=== PATIENT | male | born 1985 | race Two or more races ===

== ENCOUNTER 2023-11-08 20:45 | Observation (INO) | payer MEDICARE, SELFPAY ==
[2023-11-08 20:47] VITALS: BP 134/80; PULSE 102; TEMP 36.8; O2SAT 100; BMI 34.1
--- NOTE | 2023-11-08 20:56 | ED.LOWEXI1 ---
HPI HPI - Extremity Injury (Lower) General Chief Complaint: Extremity Injury, Lower Stated Complaint: knee pain fall Time Seen by Provider: 11/08/23 20:51 Source: patient and family Mode of arrival: ambulance Limitations: physical limitation History of Present Illness HPI Narrative: history of muscular dystrophy. Attending PT today. Therapist moved away and the patient was not aware and when he reached out to grab the therapist he fell directly onto his right knee. Injury 8 hours ago. Now has increased swelling of the knee and pain. States he also hit his head but this was mild . No headache.Does also have right hip pain. States with his therapy he was getting close to being able to ambulate without a walker Related Data Home Medications ?Medication ?Instructions ?Recorded ?Confirmed omeprazole 40 mg capsule,delayed 40 mg PO DAILY 11/08/23 11/09/23 release polyethylene glycol 3350 17 17 g PO .once daily 11/08/23 11/08/23 gram/dose oral powder Previous Rx's ?Medication ?Instructions ?Recorded hydrocodone 5 mg-acetaminophen 325 1 - 2 tab PO Q6H PRN Moderate to 11/09/23 mg tablet severe pain #20 tabs Allergies Allergy/AdvReac Type Severity Reaction Status Date / Time cashews Allergy Intermediate Uncoded 11/09/23 01:41 food dyes Allergy Intermediate Uncoded 11/09/23 01:41 peanuts Allergy Intermediate Uncoded 11/09/23 01:41 sunflower seeeds Allergy Intermediate Uncoded 11/09/23 01:41 eggs Allergy Mild Uncoded 11/09/23 01:41 shellfish Allergy Mild Uncoded 11/09/23 01:41 almonds AdvReac Severe Uncoded 11/09/23 01:41 Opioid HPI Opioid Management Most Recent Pain and Opioid Data: Last Pain Scale 7 11/09/23 13:00 Last Pain Intensity 0 11/09/23 09:27 Last Pain Assessment 11/09/23 09:27 Last Pain Assessment 11/09/23 13:00 Last MAR Pain Assessment 11/09/23 10:37 Last ORT Total Score 1 11/09/23 01:20 Last ORT Risk Category Low Risk 11/09/23 01:20 Review of Systems ROS Status of ROS 10 or more systems reviewed and unremarkable except as noted in history and below PFSH PFSH Medical History (Updated 11/09/23 @ 14:37 by Bryan Villa MD) Frequent falls ?R29.6 - Repeated falls (ICD-10) GERD (gastroesophageal reflux disease) ?K21.9 - Gastro-esophageal reflux disease without esophagitis (ICD-10) Muscular dystrophy ?G71.00 - Muscular dystrophy, unspecified (ICD-10) Abnormal endoscopy of upper gastrointestinal tract ?R93.3 - Abnormal findings on diagnostic imaging of other parts of digestive tract (ICD-10) Pneumothorax ?J93.9 - Pneumothorax, unspecified (ICD-10) Family History (Updated 11/09/23 @ 01:30 by Darrell Dye) Grandmother Family history of cancer Family history of diabetes mellitus Mother Family history of cancer Family history of diabetes mellitus Grandfather Family history of cancer Family history of diabetes mellitus Sister Family history of diabetes mellitus Other Family history not known due to adoption Social History (Updated 11/09/23 @ 01:36 by Darrell Dye) Within the past year, how often did you have a drink containing alcohol: never Within the past year, how often did you have six or more drinks on one occasion: never Score interpretation: A score less than 4 is consistent with normal alcohol consumption. Smoking status: Former smoker Second hand tobacco smoke exposure: No Non-prescribed substance use: former substance user Previous occupational history: factory, Known occupational exposures/hazards: No Highest level of school completed/degree received: Bachelor's degree Do you want help with school or training: No In a typical week, how many times do you talk on the telephone with family, friends, or neighbors: 3 or more times per week How often do you get together with friends or relatives: 3 or more times per week How often do you attend holiness or evangelical services: never Do you belong to any clubs or organizations such as holiness groups unions, fraternal or athletic groups, or school groups: no Little interest or pleasure in doing things: not at all Feeling down, depressed, or hopeless: not at all Feel stressed/tense/nervous/anxious/difficulty sleeping: only a little Life stressors: other Life stressor details: disease process Due to disability, difficulty making decisions: No Do you think of yourself as: straight/heterosexual Gender Identity: male Exam Constitutional Vital Signs, click to edit/add: Last Vital Signs Temp 98.2 F 11/08/23 20:47 Pulse 102 H 11/08/23 20:47 Resp 18 11/08/23 20:47 BP 134/80 11/08/23 20:47 Pulse Ox 100 11/08/23 20:47 O2 Del Method Room Air 11/08/23 20:47 Common normals: oriented x3, alert and well nourished (small frame) Eye Common normals: EOMs intact bilaterally and conjunctivae normal Respiratory Common normals: normal respiratory effort, no retractions and no use of accessory muscles Cardio Common normals: regular rate, regular rhythm, S1 normal heart sound and S2 normal heart sound Extremity Other: mod-severe effusion right knee. mod tenderness. mild tenderness right hip Neuro Common normals: CN's II-XII intact bilaterally and moves all extremities Sensorium/orientation: awake and alert Psych Appearance: grossly normal Course Vital Signs Vital signs: Vital Signs Temperature 98.2 F 11/08/23 20:47 Pulse Rate 102 H 11/08/23 20:47 Respiratory Rate 18 11/08/23 20:47 Blood Pressure 134/80 11/08/23 20:47 Pulse Oximetry 100 11/08/23 20:47 Oxygen Delivery Method Room Air 11/08/23 20:47 Temperature 98.2 F 11/08/23 20:47 Pulse Rate 102 H 11/08/23 20:47 Respiratory Rate 18 11/08/23 20:47 Blood Pressure 134/80 11/08/23 20:47 Pulse Oximetry 100 11/08/23 20:47 Oxygen Delivery Method Room Air 11/08/23 20:47 MDM - Extremity Injury (Lower) MDM Narrative Medical decision making narrative: patient presents after fall directly onto his right knee. significant swelling of the knee. CT without definite fracture but radiologist still concerned there may be a fracture due to lipohemarthrosis and recommends MRI. Patient placed in a knee immobilizer and referred to orthopedics. Patient not able to bear weight and not able to use walker or crutches. Discussed with hospitalist and will plan obs admission for pain control. Orthopedics Dr Arenas not able to admit patient. He was agreeable to hospitalist admission for pain control . He can see the patient for definite on Thursday Imaging Data CT scan - chest: Radiologist's impression: ITS Impressions Hip/Pelvis X-Ray 11/08/23 21:00 IMPRESSION: 1. No acute fracture or dislocation of the pelvis or right hip is seen. If there is concern for an occult injury, cross-sectional imaging is recommended. 2. No acute fracture or dislocation of the right knee is seen; however, there is a large knee lipohemarthrosis, concerning for an occult injury. Consider further evaluation with CT. Electronically authenticated by: Jenise QUINTERO Date: 11/08/2023 21:51 Knee X-Ray 11/08/23 21:00 IMPRESSION: 1. No acute fracture or dislocation of the pelvis or right hip is seen. If there is concern for an occult injury, cross-sectional imaging is recommended. 2. No acute fracture or dislocation of the right knee is seen; however, there is a large knee lipohemarthrosis, concerning for an occult injury. Consider further evaluation with CT. Electronically authenticated by: Jenise QUINTERO Date: 11/08/2023 21:[address] 11/08/23 22:15 IMPRESSION: I suspect this patient has an occult intra-articular fracture of the right knee that is so nondisplaced that it is not apparent on this CT scan. I recommend obtaining an MRI scan of the right knee which is a more sensitive and specific imaging modality for the detection of occult fractures. I recommend this patient not to bear weight on this right knee until such an MRI could be obtained. Electronically authenticated by: ALONDRA SAN Date: 11/08/2023 23:44 Discharge Plan Discharge Chief Complaint: Extremity Injury, Lower Clinical Impression: Contusion of knee, right, Hemarthrosis of right knee Patient Disposition: Admitted as Observation Time of Disposition Decision: 00:39 Condition: Fair Discharge Date/Time: 11/09/23 01:11
--- NOTE | 2023-11-08 21:00 | XR_ITS ---
The [address] [address] Patient Name: MARIO LEDBETTER MRN: [id number] date: 1985 Sex: M Assigned Patient Location: ER Current Patient Location: ER Accession/Order Number: [id number] Exam Date: 11/08/2023 21:15 Report Date: 11/08/2023 21:51 At the request of: MANDY VEAG Procedure: XR hip RT 2V w/ pelvis EXAM: XR knee RT 3V, XR hip RT 2V w/ pelvis HISTORY: injury COMPARISON: None. TECHNIQUE: One view of the pelvis, 2 views of the right hip, and 3 views of the right knee were obtained. FINDINGS: Pelvis and right hip: No acute fracture or dislocation is seen. The femoral heads are well-seated in the acetabula. The sacroiliac joints, hip joints, and pubic symphysis are preserved. Right knee: No acute fracture or dislocation is seen. The joint spaces are preserved. There is a large right knee lipohemarthrosis. XR/XR hip RT 2V w/ pelvis IMPRESSION: 1. No acute fracture or dislocation of the pelvis or right hip is seen. If there is concern for an occult injury, cross-sectional imaging is recommended. 2. No acute fracture or dislocation of the right knee is seen; however, there is a large knee lipohemarthrosis, concerning for an occult injury. Consider further evaluation with CT. Electronically authenticated by: Jenise QUINTERO Date: 11/08/2023 21:51
--- NOTE | 2023-11-08 21:00 | XR_ITS ---
The [address] [address] Patient Name: MARIO LEDBETTER MRN: [id number] date: 1985 Sex: M Assigned Patient Location: ER Current Patient Location: ER Accession/Order Number: [id number] Exam Date: 11/08/2023 21:15 Report Date: 11/08/2023 21:51 At the request of: MANDY VEGA Procedure: XR knee RT 3V EXAM: XR knee RT 3V, XR hip RT 2V w/ pelvis HISTORY: injury COMPARISON: None. TECHNIQUE: One view of the pelvis, 2 views of the right hip, and 3 views of the right knee were obtained. FINDINGS: Pelvis and right hip: No acute fracture or dislocation is seen. The femoral heads are well-seated in the acetabula. The sacroiliac joints, hip joints, and pubic symphysis are preserved. Right knee: No acute fracture or dislocation is seen. The joint spaces are preserved. There is a large right knee lipohemarthrosis. XR/XR knee RT 3V IMPRESSION: 1. No acute fracture or dislocation of the pelvis or right hip is seen. If there is concern for an occult injury, cross-sectional imaging is recommended. 2. No acute fracture or dislocation of the right knee is seen; however, there is a large knee lipohemarthrosis, concerning for an occult injury. Consider further evaluation with CT. Electronically authenticated by: Jenise QUINTERO Date: 11/08/2023 21:51
--- NOTE | 2023-11-08 22:15 | CT_ITS ---
The [address] [address] Patient Name: MARIO LEDBETTER MRN: [id number] date: 1985 Sex: M Assigned Patient Location: ER Current Patient Location: ER Accession/Order Number: [id number] Exam Date: 11/08/2023 22:48 Report Date: 11/08/2023 23:44 At the request of: MANDY VEGA Procedure: CT knee RT wo con EXAM: CT knee RT wo con HISTORY: The patient is a 38-year-old male, injury COMPARISON: Radiographs of the right knee from 9:14 PM. TECHNIQUE: CT images were obtained through the right knee without intravenous contrast and reformatted in 2 dimensions. Dose reduction techniques were achieved by using automated exposure control and/or adjustment of mA and/or kV according to patient size and/or use of iterative reconstruction technique. FINDINGS: The soft tissue images confirm the radiographic findings of a large lipohemarthrosis within the suprapatellar pouch. This typically indicates the presence of an intra-articular fracture. However, the bone images do not demonstrate any fractures or cortical discontinuities within the distal femur, patella, proximal tibia, or proximal fibula. The alignment of the medial and lateral compartments are maintained. The patellofemoral compartment is widened due to the presence of a lipohemarthrosis. CT/CT knee RT wo con IMPRESSION: I suspect this patient has an occult intra-articular fracture of the right knee that is so nondisplaced that it is not apparent on this CT scan. I recommend obtaining an MRI scan of the right knee which is a more sensitive and specific imaging modality for the detection of occult fractures. I recommend this patient not to bear weight on this right knee until such an MRI could be obtained. Electronically authenticated by: ALONDRA SAN Date: 11/08/2023 23:44
[2023-11-08] MEDS: FENTANYL CITRATE/PF 100 MCG/2 ML VIAL 50 MCG IV (22:38)
[2023-11-08 22:57] VITALS: PULSE 92; O2SAT 97
[2023-11-09 00:48] VITALS: BP 96/65; PULSE 104; TEMP 36.8; O2SAT 96
[2023-11-09 01:11] VITALS: BP 130/82; PULSE 89; O2SAT 97
[2023-11-09 01:20] VITALS: BP 96/65; PULSE 104; TEMP 36.8; O2SAT 96; BMI 14.8
[2023-11-09] MEDS: HYDROCODONE/ACET 5-325 MG TABLET 2 TAB PO ×2 (01:28→10:37)
[2023-11-09 04:00] VITALS: BP 108/72; PULSE 74; TEMP 36.4; O2SAT 95
[2023-11-09 04:57] LABS: Basophils Percent Auto 0.3 % (0.2-2.0); Eosinophils Percent Auto 0.5 % (0.9-7.0); Hematocrit 47.6 % (42.0-54.0); Hemoglobin 14.9 g/dL (14.0-18.0); Immature Granulocytes Abs Auto 0.03 10^3/uL (0.00-0.03); Immature Granulocytes Pct Auto 0.3 % (0.0-0.5); Lymphocytes Absolute Auto 1.4 10^3/uL (1.2-3.8); Lymphocytes Percent Auto 15.6 % (20.5-60.0); Mean Corpuscular HGB Conc 31.3 g/dL (29.9-35.2); Mean Corpuscular Hemoglobin 26.9 pg (25.9-34.0); Mean Corpuscular Volume 86.1 fL (80.0-94.0); Monocytes Absolute Auto 0.6 10^3/uL (0.3-0.8); Monocytes Percent Auto 7.3 % (1.7-12.0); Neutrophils Absolute Auto 6.6 10^3/uL (1.4-6.5); Platelet Count 243 10^3/uL (150-450); Red Blood Count 5.53 10^6/uL (4.70-6.10); White Blood Count 8.7 10^3/uL (4.0-11.0)
[2023-11-09 05:15] LABS: Anion Gap 18.6; BUN Creatinine Ratio 52.6; Calcium 8.5 mg/dL (8.5-10.1); Carbon Dioxide 23.1 mmol/L (21.0-32.0); Chloride 101 mmol/L (98-107); Estimated GFR (African America >60 (>=60); Estimated GFR (Non-African Ame >60 (>=60); Glucose 104 mg/dL (74-106); Potassium 3.7 mmol/L (3.5-5.1); Sodium 139 mmol/L (136-145)
--- NOTE | 2023-11-09 08:00 | MR_ITS ---
The [address] [address] Patient Name: MARIO LEDBETTER MRN: [id number] date: 1985 Sex: M Assigned Patient Location: MS Current Patient Location: MS Accession/Order Number: [id number] Exam Date: 11/09/2023 11:55 Report Date: 11/09/2023 13:41 At the request of: MICHELLE DONALDSON Procedure: MR knee RT wo con EXAM: MR knee RT wo con HISTORY: Contusion and hematoma right knee, r/o fracture fall with pain in the right knee. COMPARISON: CT 11/08/2023. TECHNIQUE: Multiplanar multisequence MRI of the right knee was performed without contrast. This included axial STIR, coronal and sagittal PD fat-sat, sagittal T2 and sagittal T1 imaging. FINDINGS: MENISCI: The menisci appear intact. No parameniscal cyst is seen. LIGAMENTS: The cruciate and collateral ligaments appear intact. TENDONS: The iliotibial band, biceps femoris, quadriceps, patellar and popliteus tendons are intact. TIBIOFEMORAL JOINT: Low-grade chondral loss at the medial tibiofemoral compartment. PATELLOFEMORAL JOINT: Low-grade chondral loss at the patellar apex and medial patellar facet. Trochlear cartilage appears maintained. Patellar ratio measures 0.74 suggesting patella baja. The patella is normally located in the trochlear groove. The tibial tubercle to trochlear groove interval appears within normal limits. SOFT TISSUES: Large lipohemarthrosis is seen with multiple fluid levels. The visualized musculature appears of normal signal intensity. BONES: There is an incomplete vertical fracture involving the medial edge of the lateral femoral condyle extending superiorly to the distal metaphysis where there is an incomplete transverse component. Adjacent bone marrow edema like signal is noted. No additional fracture is seen. MR/MR knee RT wo con IMPRESSION: 1. Complex incomplete fracture with transverse component involving much of the distal metaphysis and longitudinal component extending to the articular surface of the lateral femoral condyle. Associated lipohemarthrosis. 2. Intact menisci. Intact cruciate and collateral ligaments. 3. Suggestion of patellar baja. 4. 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 Electronically authenticated by: DAKOTA WOODRUFF Date: 11/09/2023 13:41
[2023-11-09] MEDS: OMEPRAZOLE 40 MG CAPSULE.DR PO (08:31)
[2023-11-09 08:36] VITALS: BP 98/68; PULSE 74; TEMP 36.3; O2SAT 97
[2023-11-09 09:27] VITALS: BMI 10.0
--- NOTE | 2023-11-09 10:40 | CM.NOTE ---
Rounds made with Dr. Villa, discussed with pt plan of care and need for MRI today. Dr. Arenas will also see pt for further recommendations. Pt does have [facility] that he is active with at this time. Pt's son is his primary care technician at home. Updated SW.
--- NOTE | 2023-11-09 12:15 | SWNOTE1 ---
SW spoke to case management and pt has [facility].
--- NOTE | 2023-11-09 12:55 | P.HP_ITS ---
<Statement entered by Bryan Villa MD - 11/09/23 14:39> Patient seen and examined, agree with assessment and plan below. Recent fall and knee pain. CT suggestive of fracture and confirmed by MRI. Ortho stated not surgical and need NWB to RLE. Pain controlled and discharged home. Diagnosis: 1. Fracture right knee 2. Hemarthrosis right knee 3. Muscular dystrophy 4. GERD HPI H&P: HPI History of Present Illness Chief complaint: knee pain fall INTRACTABLE KNEE PAIN Narrative: 11/09/23 0915 This is a 38-year-old male patient with a past medical history significant for muscular dystrophy and GERD; who reported to the ED yesterday evening complaining of right knee pain. The patient reports falling during a PT session yesterday and landing with his knee completely flexed underneath him. His right knee became increasingly painful and swollen and he presented to the ED for further evaluation last night. Workup in the ED with x-ray imaging revealed no acute fractures of the pelvis, right hip, and right knee, but did note a large lipohemarthrosis of the right knee. A follow-up CT of the knee was concerning for occult intra-articular fracture of the right knee that is nondisplaced but was also inadequately visualized and a follow-up MRI was recommended. As the patient was unable to bear weight due to pain, and is unable to use a walker or crutches due to his chronic MD, he was admitted to the hospitalist service in observation for pain management and orthopedic surgery on consult. An MRI of the right knee was ordered and is still pending. At the time of my exam the patient is resting in bed. He continues to complain of significant pain to the right knee with large prepatellar swelling. A knee brace was placed in the ED and it remains in place at this time. We have made the patient on nonweightbearing until the MRI of the knee can be completed and we can further evaluate for fractures. The patient denies any other acute complaints other than right knee pain. DISCHARGE: The pt was seen in consult by Dr Arenas. Knee fracture apparently confirmed by MRI (per Dr Arenas), but radiology interpretation is still pending. Fracture is non-surgical. Pt is to continue NWB status and to follow up with Dr Arenas in 2 weeks. [place] is managing pain adequately. The pt is being discharged home in stable condition. Opioid HPI Opioid Management Most Recent Opioid Data: Last Pain Scale 7 11/09/23 13:00 Last Pain Intensity 0 11/09/23 09:27 Last Pain Assessment 11/09/23 09:27 Last Pain Assessment 11/09/23 13:00 Last MAR Pain Assessment 11/09/23 10:37 Last ORT Total Score 1 11/09/23 01:20 Last ORT Risk Category Low Risk 11/09/23 01:20 Review of Systems ROS Status of ROS 10 or more systems reviewed and unremark able except as noted in history and below [facility] History (Updated 11/09/23 @ 13:08 by Jade Spivey NP) Frequent falls ?R29.6 - Repeated falls (ICD-10) GERD (gastroesophageal reflux disease) ?K21.9 - Gastro-esophageal reflux disease without esophagitis (ICD-10) Muscular dystrophy ?G71.00 - Muscular dystrophy, unspecified (ICD-10) Abnormal endoscopy of upper gastrointestinal tract ?R93.3 - Abnormal findings on diagnostic imaging of other parts of digestive tract (ICD-10) Pneumothorax ?J93.9 - Pneumothorax, unspecified (ICD-10) Family History (Updated 11/09/23 @ 01:30 by Darrell Dye) Grandmother Family history of cancer Family history of diabetes mellitus Mother Family history of cancer Family history of diabetes mellitus Grandfather Family history of cancer Family history of diabetes mellitus Sister Family history of diabetes mellitus Other Family history not known due to adoption Social History (Updated 11/09/23 @ 01:36 by Darrell Dye) Within the past year, how often did you have a drink containing alcohol: never Within the past year, how often did you have six or more drinks on one occasion: never Score interpretation: A score less than 4 is consistent with normal alcohol consumption. Smoking status: Former smoker Second hand tobacco smoke exposure: No Non-prescribed substance use: former substance user Previous occupational history: factory, Known occupational exposures/hazards: No Highest level of school completed/degree received: Bachelor's degree Do you want help with school or training: No In a typical week, how many times do you talk on the telephone with family, friends, or neighbors: 3 or more times per week How often do you get together with friends or relatives: 3 or more times per week How often do you attend mu-ism or yazdanism services: never Do you belong to any clubs or organizations such as mu-ism groups unions, fraternal or athletic groups, or school groups: no Little interest or pleasure in doing things: not at all Feeling down, depressed, or hopeless: not at all Feel stressed/tense/nervous/anxious/difficulty sleeping: only a little Life stressors: other Life stressor details: disease process Due to disability, difficulty making decisions: No Do you think of yourself as: straight/heterosexual Gender Identity: male Meds Home Medications and Allergies Home Medications ?Medication ?Instructions ?Recorded ?Confirmed ?Type omeprazole 40 mg capsule,delayed 40 mg PO DAILY 11/08/23 11/09/23 History release polyethylene glycol 3350 17 17 g PO .once daily 11/08/23 11/08/23 History gram/dose oral powder Allergies Allergy/AdvReac Type Severity Reaction Status Date / Time cashews Allergy Intermediate Uncoded 11/09/23 01:41 food dyes Allergy Intermediate Uncoded 11/09/23 01:41 peanuts Allergy Intermediate Uncoded 11/09/23 01:41 sunflower seeeds Allergy Intermediate Uncoded 11/09/23 01:41 eggs Allergy Mild Uncoded 11/09/23 01:41 shellfish Allergy Mild Uncoded 11/09/23 01:41 almonds AdvReac Severe Uncoded 11/09/23 01:41 Exam Constitutional Vital Signs, click to edit/add: Last Vital Signs Temp 97.4 F L 11/09/23 08:36 Pulse 74 11/09/23 08:36 Resp 16 11/09/23 08:36 BP 98/68 11/09/23 08:36 Pulse Ox 97 11/09/23 08:36 O2 Del Method Room Air 11/09/23 08:36 Common normals: no apparent distress, oriented x3, alert and well nourished General appearance: cooperative Orientation/consciousness: Yes awake HENMT Common normals: normocephalic, head/scalp atraumatic, hearing grossly normal bilaterally, external nose normal and moist oral mucous membranes Eye Common normals: PERRL, EOMs intact bilaterally, conjunctivae normal and no scleral icterus Alignment: alignment normal Eyelid: eyelids normal Neck & C-Spine Common normals: full ROM, supple and no JVD Chest Common normals: inspection of chest normal Chest: symmetrical chest wall rise Respiratory Common normals: normal respiratory effort, no retractions and no use of accessory muscles Effort & inspection: able to speak in complete sentences Auscultation: rales (Faint, RLL) Cardio Common normals: no JVD, regular rate, regular rhythm, S1 normal heart sound, S2 normal heart sound, no gallops, no clicks, no murmurs, no rub and peripheral pulses 2+ throughout GI Common normals: Normal to inspection, nondistended, normoactive bowel sounds present, soft to palpation, non-tender, no hepatosplenomegaly, no masses and no bruits Bladder/kidney exam: bladder normal to palpation Back & Pelvis Common normals: thoracic and lumbar spine normal to inspection Extremity Common normals: normal capillary refill and no pedal edema General: normal exam except as noted; no clubbing and no cyanosis Right lower extremity: knee joint (Large prepatellar effusion, tender, warm) Neuro [place] Coma Scale: GCS not evaluated Common normals: CN's II-XII intact bilaterally and moves all extremities Speech: speech normal Motor exam: muscle tone abnormal (Severe muscle wasting throughout) hypotonic: right upper extremity, right lower extremity and left lower extremity Psych Common normals: mental status grossly normal, thought process normal, affect normal and activity/motor behavior normal Results Labs Labs: Short CBC 11/09/23 Range/Units 04:10 WBC 8.7 (4.0-11.0) 10^3/uL Hgb 14.9 (14.0-18.0) g/dL Hct 47.6 (42.0-54.0) % Plt Count 243 (150-450) 10^3/uL BMP 11/09/23 04:10 Sodium 139 Potassium 3.7 Chloride 101 Carbon Dioxide 23.1 BUN 10.0 Creatinine 0.19 L Glucose 104 Calcium 8.5 Pulse Oximetry Attestation: I have reviewed the pertinent pulse oximetry results. Imaging R Hip/Pelvis/Knee: Attestation: I have reviewed the pertinent imaging results. Radiologist's impression: IMPRESSION: 1. No acute fracture or dislocation of the pelvis or right hip is seen. If there is concern for an occult injury, cross-sectional imaging is recommended. 2. No acute fracture or dislocation of the right knee is seen; however, there is a large knee lipohemarthrosis, concerning for an occult injury. Consider further evaluation with CT. CT Scan - R knee: Attestation: I have reviewed the pertinent imaging results. Radiologist's impression: IMPRESSION: I suspect this patient has an occult intra-articular fracture of the right knee that is so nondisplaced that it is not apparent on this CT scan. I recommend obtaining an MRI scan of the right knee which is a more sensitive and specific imaging modality for the detection of occult fractures. I recommend this patient not to bear weight on this right knee until such an MRI could be obtained. Assessment and Plan Assessment and Plan (1) Fracture of right knee region: Assessment and Plan: Acute/Suspected * Adm observation * CT knee suspicious for occult fracture with large lipohemarthrosis * MRI Knee recommended - pending * C/s Dr Arenas, orthopedic surgeon - we appreciate his assistance with this pts care * NWB status to RLE w/ knee brace in place * [place] prn for pain (2) Hemarthrosis of right knee: Assessment and Plan: Acute * 2/2 to fall and suspected knee fx * See above (3) GERD (gastroesophageal reflux disease): Assessment and Plan: Chronic * continue home PPI (4) Muscular dystrophy: Assessment and Plan: Chronic * Continue home PT/OT therapies * Continue home bowel regimen (5) Frequent falls: Assessment and Plan: Chronic * 2/2 advanced
--- NOTE | 2023-11-09 12:58 | CM.NOTE ---
Medicare Outpatient Observation Notice discussed with pt, pt verbalizes understanding and signs paper. Original given to pt and copy placed in pt's chart.
[2023-11-09 13:00] VITALS: BP 114/81; PULSE 80; TEMP 36.6; O2SAT 98
--- NOTE | 2023-11-09 13:22 | P.ORCN_ITS ---
History of Present Illness HPI Consult date: 11/09/23 Consult reason: fracture Chief complaint: knee pain fall INTRACTABLE KNEE PAIN Narrative: Patient is a 38-year-old with history of muscular dystrophy. He reports he is a limited household ambulator and uses his son for assistance. When walking yesterday he went to [employer] to get support fell onto his right knee with acute onset of pain and painful bearing weight. He presented to the emergency room where x-rays and a CT scan were unremarkable for fracture although suggestive of a fracture and was admitted for further treatment. Review of Systems ROS Status of ROS 10 or more systems reviewed and unremark able except as noted in history and below Musculoskeletal Reports: joint pain and muscle weakness [facility] Medical History (Updated 11/09/23 @ 13:08 by Jade Spivey NP) Frequent falls ?R29.6 - Repeated falls (ICD-10) GERD (gastroesophageal reflux disease) ?K21.9 - Gastro-esophageal reflux disease without esophagitis (ICD-10) Muscular dystrophy ?G71.00 - Muscular dystrophy, unspecified (ICD-10) Abnormal endoscopy of upper gastrointestinal tract ?R93.3 - Abnormal findings on diagnostic imaging of other parts of digestive tract (ICD-10) Pneumothorax ?J93.9 - Pneumothorax, unspecified (ICD-10) Family History (Updated 11/09/23 @ 01:30 by Darrell Dye) Grandmother Family history of cancer Family history of diabetes mellitus Mother Family history of cancer Family history of diabetes mellitus Grandfather Family history of cancer Family history of diabetes mellitus Sister Family history of diabetes mellitus Other Family history not known due to adoption Social History (Updated 11/09/23 @ 01:36 by Darrell Dye) Within the past year, how often did you have a drink containing alcohol: never Within the past year, how often did you have six or more drinks on one occasion: never Score interpretation: A score less than 4 is consistent with normal alcohol consumption. Smoking status: Former smoker Second hand tobacco smoke exposure: No Non-prescribed substance use: former substance user Previous occupational history: factory, Known occupational exposures/hazards: No Highest level of school completed/degree received: Bachelor's degree Do you want help with school or training: No In a typical week, how many times do you talk on the telephone with family, friends, or neighbors: 3 or more times per week How often do you get together with friends or relatives: 3 or more times per week How often do you attend catholic or moravian services: never Do you belong to any clubs or organizations such as catholic groups unions, fraternal or athletic groups, or school groups: no Little interest or pleasure in doing things: not at all Feeling down, depressed, or hopeless: not at all Feel stressed/tense/nervous/anxious/difficulty sleeping: only a little Life stressors: other Life stressor details: disease process Due to disability, difficulty making decisions: No Do you think of yourself as: straight/heterosexual Gender Identity: male Meds Home Medications and Allergies Home Medications ?Medication ?Instructions ?Recorded ?Confirmed ?Type omeprazole 40 mg capsule,delayed 40 mg PO DAILY 11/08/23 11/09/23 History release polyethylene glycol 3350 17 17 g PO .once daily 11/08/23 11/08/23 History gram/dose oral powder Allergies Allergy/AdvReac Type Severity Reaction Status Date / Time cashews Allergy Intermediate Uncoded 11/09/23 01:41 food dyes Allergy Intermediate Uncoded 11/09/23 01:41 peanuts Allergy Intermediate Uncoded 11/09/23 01:41 sunflower seeeds Allergy Intermediate Uncoded 11/09/23 01:41 eggs Allergy Mild Uncoded 11/09/23 01:41 shellfish Allergy Mild Uncoded 11/09/23 01:41 almonds AdvReac Severe Uncoded 11/09/23 01:41 Exam Narrative Exam Narrative: Patient today of his right knee reveals a moderate joint effusion. Diffuse tenderness to palpation. No gross limit ligamentous instability. Limited painful knee range of motion. Constitutional Vital Signs, click to edit/add: Last Vital Signs Temp 97.8 F 11/09/23 13:00 Pulse 80 11/09/23 13:00 Resp 16 11/09/23 13:00 BP 114/81 11/09/23 13:00 Pulse Ox 98 11/09/23 13:00 O2 Del Method Room Air 11/09/23 13:00 Results Labs Labs: Abnormal lab results 11/09/23 Range/Units 04:10 Neut % (Auto) 76.0 H (43.0-75.0) % Lymph % (Auto) 15.6 L (20.5-60.0) % Eos % (Auto) 0.5 L (0.9-7.0) % Neut # (Auto) 6.6 H (1.4-6.5) 10^3/uL Creatinine 0.19 L (0.70-1.30) mg/dL H & H 11/09/23 Range/Units 04:10 Hgb 14.9 (14.0-18.0) g/dL Hct 47.6 (42.0-54.0) % All other labs normal. Diagnostic results Knee x-ray: image reviewed (MRI images of his knee were reviewed and show a dist al femoral fracture with extension into the notch. No displacement.) Assessment and Plan Assessment and Plan (1) Fracture of right knee region: (2) Hemarthrosis of right knee: (3) GERD (gastroesophageal reflux disease): (4) Muscular dystrophy: (5) Frequent falls: Plan For his right distal femur fracture no indication for surgical intervention. Treat with knee immobilizer nonweightbearing. The patient may be discharged home from orthopedic standpoint and follow-up in my office in 2 weeks. Patient already receives physical therapy services at home.
--- NOTE | 2023-11-09 13:49 | SWNOTE1 ---
ANNIE spoke with nursing and pt, pt will need stretcher to go home due to femur fracture. ANNIE set up [facility] for 4:30pm. ANNIE let nursing know time. ANNIE completed paperwork for [facility]. ANNIE sent [facility] discharge med rec, CRF, face sheet, ED note, H&P, orthopedic note, and therapy notes.
--- NOTE | 2023-11-09 14:05 | SWNOTE1 ---
SW was consulted due to financial concerns. SW spoke to pt about these. Pt has been back and forth with medicaid due to him having a 401k in place and medicaid telling him that he does not qualify due to this. He stated he is stuck in a hard spot because if he takes it out he will be penalized but this is keeping him from medicaid. SW advised him to call jobs and family services to speak with them about this again. He also spoke about his heat and electric. He has spoke to [facility] and they have helped him some and he is on there plans. At this time ANNIE is not able to offer any other resources. He has also applied for passport, but due to the 401k he is not qualifying.
--- NOTE | 2023-11-09 14:36 | SWNOTE1 ---
ANNIE cancelled [facility], family is taking pt home.
--- NOTE | 2023-11-10 14:55 | CM.DCFOLLOWU ---
Person spoke with: patient How are you feeling? so/so How is your pain? having some pain, at about 7, spoke to Dr. Arenas's office and scheduled a follow up and let them know about his pain Did you understand your discharge instructions? yes Do you have any questions about your discharge instructions? no Were you given any prescriptions at discharge? yes Were you able to get your prescriptions filled? yes, pt had concerns about when he runs out of hydrocodone and what physician to go to. Advised to call PCP or Dr. Arenas's office. Do you understand how to take your medications as ordered? yes Do you have any questions about your follow up appointment and do you plan to keep your follow up appointment? no questions, made follow up with Dr. Arenas in 2 weeks Is there anything else that you would like to discuss? no Questions/Comments/Concerns/Other: N/A
== END 2023-11-09 14:19 | disposition home health service (06) ==
LOC: ER 11-09 00:51 → MS 11-09 13:22
PROVIDERS: Registered Nurse; Admitting Provider Nurse Practitioner; Emergency Provider Internal Medicine; Family Provider Family Medicine; PCP Family Medicine; Visit Provider Nurse Practitioner
DX: S72.401A Unspecified fracture of lower end of right femur, initial encounter for closed fracture (principal); M25.061 Hemarthrosis, right knee; G71.00 Muscular dystrophy, unspecified; K21.9 Gastro-esophageal reflux disease without esophagitis; Z87.891 Personal history of nicotine dependence; W19.XXXA Unspecified fall, initial encounter; Z79.899 Other long term (current) drug therapy; R29.6 Repeated falls
CPT/HCPCS: 36415; 73502; 73562; 73700; 73721; 80048; 85025; 96374; 97163; 97165; 97530; 99285; G0378

== ENCOUNTER 2023-11-23 11:36 | Outpatient (OUT) | payer MEDICARE, SELFPAY ==
--- NOTE | 2023-11-23 | XR_ITS ---
The [address] [address] Patient Name: MARIO LEDBETTER MRN: [id number] date: 1985 Sex: M Assigned Patient Location: Current Patient Location: Accession/Order Number: [id number] Exam Date: 11/23/2023 11:50 Report Date: 11/23/2023 15:42 At the request of: DIANA LOZANO Procedure: XR femur RT 2V PROCEDURE: XR femur RT 2V COMPARISON: CT, 11/09/2023 MRI HISTORY: RIGHT FEMUR PAIN FINDINGS: BONES:No fracture, acute abnormality, or significant arthropathy. SOFT TISSUES:Diffuse muscular atrophy EFFUSION:Large joint effusion with suspected fat fluid level OTHER: Negative. XR/XR femur RT 2V IMPRESSION: Joint effusion with lipohemarthrosis. Findings are stable from the prior MRI with the fracture occult by plain x-ray Electronically authenticated by: CAROL BUTLER Date: 11/23/2023 15:42
== END 2023-11-23 11:37 | disposition home or self-care (01) ==
LOC: EC 11:38
PROVIDERS: Family Provider Family Medicine; PCP Family Medicine; Visit Provider Orthopaedic Surgery
DX: S72.491A Other fracture of lower end of right femur, initial encounter for closed fracture (principal); W19.XXXA Unspecified fall, initial encounter
CPT/HCPCS: 73552

== ENCOUNTER 2023-12-21 11:48 | Outpatient (OUT) | payer MEDICARE, SELFPAY ==
--- NOTE | 2023-12-21 | XR_ITS ---
The [address] [address] Patient Name: MARIO LEDBETTER MRN: [id number] date: 1985 Sex: M Assigned Patient Location: Current Patient Location: Accession/Order Number: [id number] Exam Date: 12/21/2023 11:52 Report Date: 12/22/2023 08:11 At the request of: DIANA LOZANO Procedure: XR knee RT 2V PROCEDURE: XR knee RT 2V HISTORY: RIGHT KNEE PAIN COMPARISON: XR knee right 11/18/2023, MRI right knee 11/09/2023 FINDINGS: BONES:No visible fracture. No dislocation or significant degenerative joint disease. SOFT TISSUES:No visible soft tissue swelling. EFFUSION:Small joint effusion. OTHER: Negative. XR/XR knee RT 2V IMPRESSION: 1. No radiographic evidence of known nondisplaced femoral fractures and bone bruising seen on recent MRI. 2. Joint effusion; significantly improved. Electronically authenticated by: DIANA BARDALES Date: 12/22/2023 08:11
== END 2023-12-21 11:49 | disposition home or self-care (01) ==
LOC: EC 11:48
PROVIDERS: Family Provider Family Medicine; PCP Family Medicine; Visit Provider Orthopaedic Surgery
DX: M25.561 Pain in right knee (principal); M25.461 Effusion, right knee
CPT/HCPCS: 73560

== ENCOUNTER 2024-01-18 10:55 | Outpatient (OUT) | payer MEDICARE, SELFPAY ==
--- NOTE | 2024-01-18 | XR_ITS ---
The [address] [address] Patient Name: MARIO LEDBETTER MRN: [id number] date: 1985 Sex: M Assigned Patient Location: Current Patient Location: Accession/Order Number: [id number] Exam Date: 01/18/2024 10:59 Report Date: 01/19/2024 09:53 At the request of: DIANA LOZANO Procedure: XR knee RT 2V PROCEDURE: XR knee RT 2V HISTORY: RIGHT KNEE PAIN COMPARISON: XR knee right 12/21/2023 FINDINGS: BONES:No fracture, acute abnormality, or significant arthropathy. SOFT TISSUES:No visible soft tissue swelling. EFFUSION:Moderate size joint effusion. OTHER: Negative. XR/XR knee RT 2V IMPRESSION: 1. No appreciable acute bone abnormality. 2. Moderate size joint effusion. Electronically authenticated by: DIANA BARDALES Date: 01/19/2024 09:53
== END 2024-01-18 10:56 | disposition home or self-care (01) ==
LOC: EC 10:56
PROVIDERS: Family Provider Family Medicine; PCP Family Medicine; Visit Provider Orthopaedic Surgery
DX: M25.461 Effusion, right knee (principal)
CPT/HCPCS: 73560

== ENCOUNTER 2024-02-15 10:03 | Outpatient (OUT) | payer MEDICARE, SELFPAY ==
--- NOTE | 2024-02-15 | XR_ITS ---
[address] [address] Patient Name: MARIO LEDBETTER MRN: [id number] date: 1985 Sex: M Assigned Patient Location: Current Patient Location: Accession/Order Number: [id number] Exam Date: 02/15/2024 10:05 Report Date: 02/15/2024 14:22 At the request of: DIANA LOZANO Procedure: XR knee RT 2V PROCEDURE: XR knee RT 2V COMPARISON: 01/18/2024, 11/08/2023 HISTORY: RIGHT KNEE PAIN FINDINGS: BONES:No fracture, acute abnormality, or significant arthropathy. SOFT TISSUES:Negative. No visible soft tissue swelling. EFFUSION:None visible. OTHER: Negative. XR/XR knee RT 2V IMPRESSION: Resolution of joint effusion Fracture seen by MRI is not clearly visualized on plain x-ray Electronically authenticated by: CAROL BUTLER Date: 02/15/2024 14:22
== END 2024-02-15 10:04 | disposition home or self-care (01) ==
LOC: EC 10:03
PROVIDERS: Family Provider Family Medicine; PCP Family Medicine; Visit Provider Orthopaedic Surgery
DX: M25.561 Pain in right knee (principal)
CPT/HCPCS: 73560